=== PATIENT | male | born 1980 | race Caucasian/White ===

== ENCOUNTER 2021-06-05 19:00 | Emergency (ER) | payer OTHER, SELFPAY ==
--- NOTE | ~2021-06-05 | XR_ITS ---
EXAMINATION: XR FINGER, LEFT CLINICAL INFORMATION: Laceration index finger COMPARISON: None TECHNIQUE: 3 views of the index finger including AP view of the hand FINDINGS: The bones and soft tissues are normal. No fracture. Alignment is anatomic. Joint spaces are maintained. XR/XR finger LT min 2V IMPRESSION: Normal x-ray series of the index finger.
[2021-06-05 19:54] VITALS: BP 131/79; PULSE 74; RESP 18; TEMP 36.9; O2SAT 97; BMI 34.9
[2021-06-05 20:24] VITALS: BP 130/83; PULSE 66; RESP 16; O2SAT 97
--- NOTE | 2021-06-05 20:35 | ED_ITS ---
HPI - Extremity Problem General Chief complaint: Extremity Problem Stated complaint: cut finger tip off Source: patient Mode of arrival: ambulatory Limitations: no limitations History of Present Illness HPI Narrative: 41-year-old male presents with laceration to left index finger. Patient was cutting food and his knife slipped. Complaint: extremity pain Onset (ago): hour(s) (Within the hour of arrival) Pain Consistency: constant Location: right and upper extremity Severity scale (1-10): 4 Quality: aching Radiation: none Relieving factors: immobilization Exacerbating factors: range of motion and palpation Associated symptoms: denies other symptoms Related Data Allergies Allergy/AdvReac Type Severity Reaction Status Date / Time No Known Allergies Allergy Verified 06/05/21 20:35 Review of Systems Review of Systems: Constitutional: No Fever, No Chills ENT/Mouth: No Ear Pain, No Hoarseness, No sore throat Eyes: No Eye Pain, No Swelling, No Redness, No Foreign Body Cardiovascular: No Chest Pain, No SOB Respiratory: No Cough, No Dyspnea Gastrointestinal: No Nausea, No Vomiting, No Diarrhea, No abdominal Pain Genitourinary: No Dysuria, No Hematuria Musculoskeletal: positive right index finger pain, No Myalgias, No Joint Swelling Skin: Positive right index finger laceration, No rash Neuro: No Weakness, No Numbness, No Paresthesias, No Loss of Consciousness, No Dizziness, No Headache Psych: No Anxiety/Panic, No Depression Heme/Lymph: no easy bruising, no Lymphadenopathy Endocrine: No Polyuria, No Polydipsia Yes all other systems are reviewed and are negative [facility] Past Medical History Attestation statement: The following information was validated with the patient. Source: old records reviewed Medical History No known health problems Social History Social History Advance Directives: No Physical Exam Vital Signs: Vital Signs: Last Vital Signs Temp 98.4 F 06/05/21 19:54 Pulse 66 06/05/21 20:24 Resp 16 06/05/21 20:24 BP 130/83 06/05/21 20:24 Pulse Ox 97 06/05/21 20:24 BMI result Body Mass Index 34.9 Appearance: Alert. Oriented X3. No acute distress. Eyes: Pupils equal, round and reactive to light. ENT: Pharynx normal. Neck: Normal inspection. Neck supple. CVS: Normal heart rate and rhythm. Pulses normal. Respiratory: No respiratory distress. Breath sounds normal. Abdomen: Soft and nontender. Skin: Skin warm and dry. Normal skin color. Normal skin turgor. Extremities: Flap laceration to the tip of the index finger involving the nail. Full range of motion, strength 5/5, no indication of tendon deficit. Brisk capillary refill. Neuro: No motor deficit. No sensory deficit. Cranial nerves 2-12 intact. Course Course Course Narrative: 41-year-old male presents with index finger laceration from a kitchen knife. Bleeding is controlled at this time. Will update Tdap vaccine. Order an x-ray to rule out bone involvement or foreign body. Has full range of motion and strength 5/5. No indication of tendon deficit. X-rays are negative for bone involvement and foreign body. Laceration repaired. Prepped and draped in sterile fashion. Patient tolerated procedure well. Patient verbalized understanding of and agrees to plan of care discharge home. Verbalized understanding of signs and symptoms indicating need for emergent intervention. MDM - Extremity (Nontraumatic) MDM Narrative Medical decision making narrative: Laceration Medical Records Attestation: I reviewed the patient's medical records. Imaging Data Finger x-ray: Attestation: I personally reviewed and interpreted this imaging study as follows: Radiologist's impression: EXAMINATION: XR FINGER, LEFT CLINICAL INFORMATION: Laceration index finger? COMPARISON: None? TECHNIQUE: 3 views of the index finger including AP view of the hand FINDINGS: The bones and soft tissues are normal. No fracture. Alignment is anatomic. Joint spaces are maintained.? XR/XR finger LT min 2V IMPRESSION: Normal x-ray series of the index finger. ? Procedures Laceration Laceration 1: Site: hand Side (If applicable): right (Index finger) Size (cm): 2 Description: irregular Depth: simple, single layer Local Anesthetic: lidocaine 2% Amount of anesthesia used (mL): 4 Pre-repair: wound explored, irrigated extensively and deep structures intact Skin layer closed with: nylon Size (cm): 4-0 Number of sutures: 4 Technique: simple, interrupted Discharge Plan Discharge Clinical Impression: Finger laceration Patient Disposition: Home, Self-Care Instructions: Care For Your Stitches (DC), Finger Laceration (ED) Additional Instructions: You were evaluated for laceration to your index finger. We placed 4 sutures and some Steri-Strips. Please keep these in place. Return in 10 days to have sutures removed. We updated your Tdap vaccine today. Monitor for signs and symptoms indicating infection. Please return if you notice signs and symptoms indicating infection Thank you for choosing this emergency department for evaluation. Please follow-up with primary care physician as needed. Return to the emergency department for any new, concerning, or worsening symptoms. Interventions: ED Discharge Assessment Last Done: 06/05/21 22:51 Discharge Date/Time: 06/05/21 22:53
[2021-06-05] MEDS: Diphth,Pertus(ACell),Tet Adult 0.5 ML SYRINGE IM (21:00)
[2021-06-05] MEDS: Lidocaine HCl 2 % MPF 5 ML VIAL SUBCUT (21:00)
== END 2021-06-05 22:53 | disposition home or self-care (01) ==
PROVIDERS: Emergency Provider Student in an Organized Health Care Education/Training Program
DX: S61.210A Laceration without foreign body of right index finger without damage to nail, initial encounter (principal); S60.511A Abrasion of right hand, initial encounter; W26.0XXA Contact with knife, initial encounter; Y93.G3 Activity, cooking and baking; Y92.000 Kitchen of unspecified non-institutional (private) residence as the place of occurrence of the external cause; Y99.9 Unspecified external cause status
CPT/HCPCS: 12001; 73140; 90471; 90715; 96372; 99283; 99284

== ENCOUNTER 2021-06-15 07:04 | Emergency (ER) | payer OTHER, SELFPAY ==
[2021-06-15 07:10] VITALS: BP 104/70; PULSE 72; RESP 16; TEMP 36.6; O2SAT 97; BMI 38.9
--- NOTE | 2021-06-15 07:13 | ED.RECABL ---
HPI - Recheck/Abnormal Lab/Rx General Chief Complaint: Wound/Laceration Stated Complaint: severe laceration on finger/INJ Time Seen by Provider: 06/15/21 07:11 Source: patient and old records reviewed Mode of arrival: ambulatory Limitations: no limitations History of Present Illness complaint: suture/staple removal Initial visit (ago): day(s) (10) Initial visit for: laceration Returns today for: staple/stitch removal Symptoms since prior visit: no new symptoms and improved Context: planned re-check Associated symptoms: none Treatments prior to arrival: dressings Related Data Allergies Allergy/AdvReac Type Severity Reaction Status Date / Time No Known Allergies Allergy Verified 06/05/21 20:35 Review of Systems Review of Systems: Constitutional : No Fever, No Chills, Cardiovascular : No Chest Pain, No SOB Respiratory : No Dyspnea Gastrointestinal : No abdominal pain Musculoskeletal : No Joint Swelling Skin : No rash, positive healing skin laceration Neuro : No Weakness, No Numbness PMFSH Past Medical History Medical History No known health problems Social History Social History (Updated 06/15/21 @ 07:25 by Marianne Madrid DO) Patient Tobacco Use Status: Tobacco use Unknown Advance Directives: No Advance Directives Information Provided: No Physical Exam Vital Signs: Vital Signs: Last Vital Signs Temp 98 F 06/15/21 07:10 Pulse 72 06/15/21 07:10 Resp 16 06/15/21 07:10 BP 104/70 06/15/21 07:10 Pulse Ox 97 06/15/21 07:10 BMI result Body Mass Index 38.9 Appearance: Alert. Oriented X3. No acute distress. Eyes: Pupils equal, round and reactive to light. ENT: Pharynx normal. Neck: Normal inspection. Neck supple. CVS: Pulses normal. Respiratory: No respiratory distress. Skin: Skin warm and dry. Normal skin color. Extremities: L index finger wound margins well approximated nail area does seem somewhat lifted - but no signs of erythema/fluctuance/purulence - NV intact Neuro: Oriented X 3. No motor deficit. No sensory deficit. MDM - Recheck/Abnormal Lab/Rx MDM Narrative Medical decision making narrative: 41 yo male here for suture removal - no complaints healing well no signs of infection given location of wound aware nail might fall off. Procedures Procedure Narrative Procedure Narrative: cleansed area with betadine removed 4 sutures without incident from wound - edges approximated no signs of infection, tolerated well Discharge Plan Discharge Clinical Impression: Visit for suture removal Patient Disposition: Home, Self-Care Instructions: Stitches Removal (ED) Additional Instructions: return to ED for any worsening symptoms or concerns monitor for redness, yellow drainage, swelling, fevers the nail will most likely fall off at some point - try to keep it protected
== END 2021-06-15 07:25 | disposition home or self-care (01) ==
PROVIDERS: Emergency Provider Emergency Medicine
DX: Z04.2 Encounter for examination and observation following work accident (principal); Z48.02 Encounter for removal of sutures; S61.211D Laceration without foreign body of left index finger without damage to nail, subsequent encounter; X58.XXXD Exposure to other specified factors, subsequent encounter
CPT/HCPCS: 99283